=== PATIENT | male | born 2000 | race Caucasian/White ===

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

== ENCOUNTER 2018-11-17 20:37 | Emergency (ER) | payer BC ==
[2018-11-17] MEDS ORDERED: Diphtheria,Pertussis(Acell),Tetanus Vaccine 0.5 ML Syringe IM ONE (20:56)
[2018-11-17] MEDS ORDERED: Lidocaine 2% Jelly 5 ML Tube TOP ONE (20:56)
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
[2018-11-17] MEDS ORDERED: EPINEPHrine/Lidocaine/Tetracai 3 ML ML ONE (21:11)
[2018-11-17] MEDS ORDERED: Lidocaine 2% Jelly 10 ML Urojet ONE (21:14)
[2018-11-17] MEDS ORDERED: Lidocaine 2% Jelly 10 ML Urojet MUCMEM ONE (21:20)
[2018-11-17] MEDS ORDERED: Bacitracin Oint 15 GM Tube TOP ONE (21:39)
[2018-11-17 22:10] VITALS: BP 143/69
== END 2018-11-17 22:10 | disposition home or self-care (01) ==
LOC: JD.ED 20:37
DX: S40.212A Abrasion of left shoulder, initial encounter (principal); S20.412A Abrasion of left back wall of thorax, initial encounter; S50.312A Abrasion of left elbow, initial encounter; S50.311A Abrasion of right elbow, initial encounter; S60.512A Abrasion of left hand, initial encounter; S80.812A Abrasion, left lower leg, initial encounter; S90.512A Abrasion, left ankle, initial encounter; F32.9 Major depressive disorder, single episode, unspecified; Z23 Encounter for immunization; F17.210 Nicotine dependence, cigarettes, uncomplicated; Z79.899 Other long term (current) drug therapy; V29.9XXA Motorcycle rider (driver) (passenger) injured in unspecified traffic accident, initial encounter
CPT/HCPCS: 90471; 90700; 99284; A9270; 99283